=== PATIENT | male | born 1985 | race Caucasian/White ===

== ENCOUNTER → 2020-10-18 17:27 | Outpatient (CLI) | payer OTHER, SELFPAY ==
--- NOTE | 2020-10-18 | DI.MRI.S_ITS ---
PROCEDURE: MR SHOULDER RT WO CON INDICATIONS: RIGHT SHOULDER PAIN TECHNIQUE: Noncontrast oblique coronal T2 fast spin echo with fat saturation, oblique sagittal T1 spin echo and T2 fast spin echo with fat saturation, axial T1 spin echo and T2 fast spin echo with fat saturation through the shoulder. COMPARISON: None. FINDINGS: Image quality: Excellent. Rotator cuff: The supraspinatus, infraspinatus, and subscapularis tendons appear intact throughout. Sagittal images demonstrate no muscle atrophy. Bones and bursae: No bone marrow contusions or fractures. Moderate acromioclavicular joint degeneration. The acromion demonstrates conventional anatomy, without an os acromiale. No pathologic subacromial-subdeltoid or subcoracoid bursal fluid is present. Capsule and soft tissues: In the absence of intra-articular contrast, the labrum and glenohumeral ligaments appear intact. The long head of the biceps tendon demonstrates normal location and morphology. The rotator interval appears normal, without fibrosis. The coracohumeral ligament is normal in thickness. IMPRESSION: 1. Acromioclavicular joint osteoarthritis. 2. No rotator cuff tear. Dictated by: Christy Rodrigues M.D. on 10/19/2020 at 9:05 Approved by: Christy Rodrigues M.D. on 10/19/2020 at 9:06
--- NOTE | 2020-10-18 17:28 | DI.MRI.S_ITS ---
PROCEDURE: MR KNEE LT WO CON INDICATIONS: Pain left knee, Pain right shoulder TECHNIQUE: Noncontrast sagittal PD fast spin echo and T2 fast spin echo with fat saturation, sagittal 3-D FLASH with fat saturation; coronal T1 spin echo and PD fast spin echo with fat saturation, and axial PD fast spin echo with fat saturation through the knee. COMPARISON: None. FINDINGS: Image quality: Excellent. Menisci: Very subtle linear signal change present of the substance of the posterior horn may extend to the undersurface on image 9/8 raising the possibility of nondisplaced subtle undersurface tear. Lateral meniscus intact. Cruciate ligaments: Status post ACL reconstruction. The graft is not well visualized however suggestive of rupture/advanced degeneration. This finding likely chronic given the absence of adjacent soft tissue edema. Posterior cruciate ligament appears intact. Medial structures: The medial collateral ligament appears intact. Semimembranosus tendon appears intact. Visualized portions of the pes anserinus tendons appear normal. No abnormal bursal fluid. Lateral structures: The lateral collateral ligament intact. Biceps femoris tendon appears intact. Popliteus tendon grossly unremarkable. Iliotibial band appears intact. Anterior structures: Quadriceps tendon demonstrates mild distal thickening in keeping with low-grade chronic tendinopathy. Medial and lateral patellofemoral ligaments intact. There is mild patellar tendinopathy. Prepatellar and superficial infrapatellar subcutaneous edema/fluid. Bones and cartilage: No focal marrow contusion or discrete low signal fracture line. Within the medial compartment, no focal cartilage defect Within the lateral compartment, no focal cartilage defect Within the patellofemoral compartment, surface fraying of the cartilage overlying the medial patellar facet and median patellar ridge. There is mild partial-thickness loss and intrasubstance signal change of the cartilage overlying the central femoral trochlea. Joint space: No joint effusion. Tiny Pérez's cyst. No specific evidence of intra-articular loose body. IMPRESSION: Minimal intrasubstance signal change raising possibility of subtle nondisplaced undersurface tear involving the posterior horn of the medial meniscus however recommend close clinical correlation given the subtlety of the MR appearance as detailed above. Status post ACL reconstruction, however the graft is not well seen suggesting graft rupture/advanced degeneration. This finding likely chronic. Mild patellofemoral chondromalacia Tiny Pérez's cyst Low-grade distal quadriceps tendinopathy, chronic Dictated by: Jason Isabel M.D. on 10/19/2020 at 11:18 Approved by: Jason Isabel M.D. on 10/19/2020 at 11:27
== END ==
PROVIDERS: PCP Student in an Organized Health Care Education/Training Program; Referring Provider Student in an Organized Health Care Education/Training Program; Visit Provider Student in an Organized Health Care Education/Training Program
DX: M25.562 Pain in left knee (principal); M22.42 Chondromalacia patellae, left knee; M25.511 Pain in right shoulder; M19.011 Primary osteoarthritis, right shoulder
CPT/HCPCS: 73221; 73721